=== PATIENT | female | born 1945 | race African-American/Black ===

== ENCOUNTER 2019-09-18 11:28 | Day surgery (SDC) | payer MEDICARE, BC ==
[2019-09-17 14:30] VITALS: BMI 37.2
[~2019-09-18 11:28] MED LIST: EPINEPHrine 0.3 MG in Ophthalmic Irrigation Solution 500 ML IRR SCH; Fentanyl 100 MCG/2 ML VIAL ONE; Midazolam HCl 2 mg/2 ml Vial ONE
[2019-09-18] MEDS ORDERED: Cyclopentolate 1% Opth Drop 2 ML BOT ONE (12:22)
[2019-09-18] MEDS ORDERED: Phenylephrine 2.5% Ophth Soln 5 ML BOT ONE (12:22)
[2019-09-18] MEDS ORDERED: Lidocaine 4% PF 5 ML AMP ONE (14:31)
[2019-09-18] MEDS ORDERED: PROPOFOL 200 MG/20 ML VIAL ONE (14:31)
[2019-09-18] MEDS ORDERED: Bupivacaine PF 0.75% SDV 10 ML ONE (14:31)
[2019-09-18] MEDS ORDERED: Maxitrol 0.1% Opth Oint 3.5 GM TUBE ONE (14:31)
[2019-09-18] MEDS ORDERED: Triamcinolone 40 MG/ML VIAL ONE (14:31)
[2019-09-18] MEDS ORDERED: Lidocaine 1% PF 5 ML VIAL ONE (14:31)
[2019-09-18] MEDS ORDERED: Dextrose 50% Abboject 50 ML SYRINGE ONE (15:01)
--- NOTE | 2019-09-18 15:51 | OP ---
DATE OF PROCEDURE: 09/18/2019 PRINCIPAL PREOPERATIVE DIAGNOSIS: Vitreomacular traction, left eye. POSTOPERATIVE DIAGNOSIS: Vitreomacular traction, left eye. NAME OF PROCEDURES PERFORMED: 1. 25-gauge pars plana vitrectomy, left eye. 2. Membrane peel, left eye. ESTIMATED BLOOD LOSS: None. SPECIMENS REMOVED: None. COMPLICATIONS: None. ANESTHESIA: MAC with retrobulbar block. SUMMARY OF THE OPERATION: The patient was identified in the preoperative holding area, where the correct eye being the left eye was marked for surgery. The patient was taken to the operating room, where MAC anesthesia was induced. A retrobulbar block was administered to the left eye. The block consisted of 1:1 ratio of 4% lidocaine and 0.75% Marcaine. A total of 5 mL was administered. The left eye was then prepped and draped in the usual sterile ophthalmic fashion for surgery. A wire lid speculum was placed. A standard 25-gauge pars plana vitrectomy platform was fashioned with trocars placed approximately 3.5 mm posterior to the limbus. The infusion was noted to be within the vitreous cavity prior to being turned on to an infusion pressure of 30 mmHg. The light pipe and micro vitrector were introduced in the eye under visualization of the BIOM viewing system. A careful core vitrectomy was performed followed by injection of Kenalog. Subsequently, a gentle posterior vitreous detachment was created followed by completion of peripheral shave vitrectomy. The macula was closely examined under high magnification following a new epiretinal membrane was noted and requiring further peeling. A 360-degree scleral depressed exam of the periphery was performed with no defects found. The cannulas were subsequently removed. All sclerotomies were noted to be watertight. Subconjunctival Ancef and Kenalog were injected. The wire lid speculum was removed followed by application of TobraDex ophthalmic ointment and a light patch and shield. The patient tolerated the procedure well and was taken to outpatient recovery area in good condition. Job ID: [id number]
== END 2019-09-18 15:50 | disposition home or self-care (01) ==
LOC: SDC 11:28
PROVIDERS: ATTEND Ophthalmology Retina Specialist
PROC: 08T53ZZ Resection of Left Vitreous, Percutaneous Approach (ICD-10-PCS; principal; 2019-09-18)
PROC: 08NF3ZZ Release Left Retina, Percutaneous Approach (ICD-10-PCS; 2019-09-18)
DX: H43.822 Vitreomacular adhesion, left eye (principal); H43.312 Vitreous membranes and strands, left eye; I10 Essential (primary) hypertension; E11.9 Type 2 diabetes mellitus without complications; Z79.4 Long term (current) use of insulin; Z79.82 Long term (current) use of aspirin; Z79.899 Other long term (current) drug therapy
CPT/HCPCS: 36416; J0171; J2250; J3010